=== PATIENT | female | born 1995 | race Caucasian/White ===

== ENCOUNTER → 2017-07-03 | Outpatient (CLI) | payer BC ==
[2017-07-03 14:56] LABS: CHLAM PCR NOT DETECTED (NOT DETECT)
== END ==
LOC: LAB 13:15
PROVIDERS: ATTEND Nurse Practitioner Acute Care
DX: L29.8 Other pruritus (principal); R30.0 Dysuria
CPT/HCPCS: 87086; 87210; 87491; 87591

== ENCOUNTER → 2017-07-13 | Outpatient (CLI) | payer BC ==
[2017-07-13 16:56] LABS: CHLAM PCR NOT DETECTED (NOT DETECT)
== END ==
LOC: LAB 15:15
PROVIDERS: ATTEND Emergency Medicine
DX: L29.8 Other pruritus (principal); N89.8 Other specified noninflammatory disorders of vagina
CPT/HCPCS: 87210; 87491; 87591

== ENCOUNTER → 2017-09-23 | Outpatient (CLI) | payer BC | LOC: OD 12:46 | PROVIDERS: ATTEND Nurse Practitioner Acute Care | DX: J02.9 Acute pharyngitis, unspecified (principal) | CPT/HCPCS: 36415; 86308 ==